=== PATIENT | female | born 2005 | race Caucasian/White ===

== ENCOUNTER 2024-08-31 10:25 | Outpatient (CLI) | payer OTHER, SELFPAY ==
[2024-08-31 11:02] LABS: Hemoglobin* 14.1 gm/dL (12.0-16.0)
[2024-08-31 12:16] LABS: Ferritin* 12.8 ng/mL (6.24-137.0)
== END 2024-08-31 10:26 | disposition home or self-care (01) ==
PROVIDERS: Visit Provider Family Medicine
DX: R53.83 Other fatigue (principal)
CPT/HCPCS: 36415; 82728; 85018

== ENCOUNTER 2025-07-12 12:47 | Outpatient (CLI) | payer OTHER, SELFPAY ==
[2025-07-12 13:10] LABS: Hemoglobin* 12.5 gm/dL (12.0-16.0)
[2025-07-14 06:22] LABS: EBV Ab Nuclear Ag IgG 225.0 U/mL (<=17.9); EBV Ab Viral Capsid Ag IgG 227.0 U/mL (<=17.9); EBV Ab Viral Capsid Ag IgM 16.2 U/mL (<=35.9)
== END 2025-07-12 12:48 | disposition home or self-care (01) ==
PROVIDERS: Visit Provider Family Medicine
DX: Z86.2 Personal history of diseases of the blood and blood-forming organs and certain disorders involving the immune mechanism (principal); R53.83 Other fatigue
CPT/HCPCS: 36415; 82728; 85018; 86663; 86664; 86665